=== PATIENT | male | born 1980 | race Hispanic/Latino ===

== ENCOUNTER 2020-07-18 18:45 | Emergency (ER) | payer OTHER ==
[~2020-07-18] VITALS: Ht 170.2 cm; Wt 105.0 kg
[2020-07-18] MEDS ORDERED: PERCOCET 5/325M1 TAB PO (20:32)
[2020-07-18 20:55] VITALS: BP 110/89
== END 2020-07-18 20:55 | disposition home or self-care (01) | DRG 103 ==
LOC: ED 18:45
DX: R51.9 Headache, unspecified (principal); M54.2 Cervicalgia; V68.5XXA Driver of heavy transport vehicle injured in noncollision transport accident in traffic accident, initial encounter